=== PATIENT | female | born 1985 | race African-American/Black ===

== ENCOUNTER 2016-07-17 09:07 | Emergency (ER) | payer MEDICAID ==
[~2016-07-17] VITALS: Ht 175.3 cm; Wt 73.0 kg
[~2016-07-17 09:07] MED LIST: HYDR200T3 PO; PREN0.01 PO; ULTR50TA PO
[2016-07-17 09:11] VITALS: BP 147/74; PULSE 89; RESP 17; TEMP 98.2; O2SAT 99
--- NOTE | 2016-07-17 09:43 | PD ---
HPI Chief Complaint: Back/ Neck Pain or Injury Time Seen by Provider: 09:43 Travel History International Travel<30 days: No Contact w/Intl Traveler<30days: No Traveled to known affect area: No History of Present Illness HPI 31-year-old Afro-[place] female presents the emergency Department with sudden onset middle to upper thoracic tenderness in the left arm, secondary lifting HER 2-year-old child while getting her ready for daycare this morning. Patient states the pain starts in her upper back and radiates into her left arm and around her left chest. She denies weakness of the left arm, or numbness. Pain is worse with twisting motion of the thorax. Also is worse with cough. She is not short of breath however, nauseous, and denies vomiting. Her pain is currently 8 out of 10. She is allergic to Lortab. PFSH Past Medical History Arthritis: Yes (RA) Autoimmune Disease: Yes (SYSTEMATIC LUPUS) Blood Disorders: No Depression: Yes Cancer: No Cardiovascular Problems: No Diminished Hearing: No Endocrine: No Gastrointestinal Disorders: Yes (GASTRITIS. ) Genitourinary: Yes (NEPHROTIC SYNDROME 2004) Hypertension: Yes (PREVIOUSLY DX D/T NEPHROTIC SYNDROME) Musculoskeletal: No Neurologic: No Psychiatric: No Respiratory: No Integumentary: Yes (SINCE JUNE, BUTTERFLY RASH TO FACE) ?: Unknown : 6 Para: 3 Miscarriage: 3 : 0 Ectopic : No Dilation and Curettage (D&C): Yes (2003) Past Surgical History Genitourinary Surgery: Yes (LEFT KIDNEY BIOPSY) Gynecologic Surgery: Yes (D&C) Other Surgery: No Social History Alcohol Use: No Tobacco Use: Yes (FEW/DAY) Substance Use: Yes (MARIJUANA) Allergies-Medications (Allergen,Severity, Reaction): Coded Allergies: Lortab (Verified Adverse Reaction, Intermediate, Nausea/Vomiting, 09/12/14) Reported Meds & Prescriptions Reported Meds & Active Scripts Active Vit ( Plus) (Prenat Multivit/Senior Care Specialist/Iron/Folic Ac) Tab 1 Tab PO DAILY Reported Ultram (Tramadol HCl) 50 Mg Tab 50 Mg PO Q4H PRN Hydroxychloroquine Sulfat (Hydroxychloroquine Sulfate) 200 Mg Tab 200 Mg PO Q12 Review of Systems Except as stated in HPI: all other systems reviewed are Neg General / Constitutional: No: Fever Eyes: No: Visual changes HENT: No: Headaches Cardiovascular: No: Chest Pain or Discomfort Respiratory: No: Shortness of Breath Gastrointestinal: No: Abdominal Pain Genitourinary: No: Dysuria Musculoskeletal: Positive: Myalgias, Limited ROM, Pain Skin: No Rash Neurologic: No: Weakness Psychiatric: No: Depression Endocrine: No: Polydipsia Hematologic/Lymphatic: No: Easy Bruising Physical Exam Narrative GENERAL: Patient appears in mild to moderate distress. SKIN: Warm and dry. Normal color. Normal turgor. No rash. HEAD: Atraumatic. Normocephalic. EYES: Pupils equal and round. No scleral icterus. No injection or drainage. ENT: No nasal bleeding or discharge. Mucous membranes pink and moist. NECK: Trachea midline. No bony tenderness or step-off. Range of motion of the cervical spine is full and without tenderness. CARDIOVASCULAR: Regular rate and rhythm. RESPIRATORY: No accessory muscle use. Clear to auscultation. Breath sounds equal bilaterally. Patient has no bony tenderness to the thoracic spine, however she has soft tissue tenderness and spasm along the mid to upper thoracic paraspinous region consistent with a muscle strain/sprain. GASTROINTESTINAL: Abdomen soft, non-tender, nondistended. Hepatic and splenic margins not palpable. No CVA tenderness. MUSCULOSKELETAL: Extremities without clubbing, cyanosis, or edema. No obvious deformities. NEUROLOGICAL: Awake and alert. No obvious cranial nerve deficits. Motor grossly within normal limits. Five out of 5 muscle strength in the arms and legs. Normal speech. PSYCHIATRIC: Appropriate mood and affect; insight and judgment normal. Data Data Last Documented VS Vital Signs Date Time Temp Pulse Resp B/P Pulse Ox O2 Delivery O2 Flow Rate FiO2 07/17/16 09:11 98.2 89 17 147/74 99 Orders Orphenadrine Inj (Norflex Inj) (07/17/16 10:00) MDM Medical Decision Making Medical Screen Exam Complete: Yes Emergency Medical Condition: Yes Differential Diagnosis Thoracic strain. Muscle spasm. Brachial plexus injury. Narrative Course Patient is medically stable at time of exam. Radiographic imaging is not felt warranted based on the patient's history and physical. Patient is given an injection of Norflex 60 mg IM. Patient will be continued on Norflex 100 mg twice a day #10. Patient also given ibuprofen 800 mg 3 times daily with food. Patient can also take extra strength Tylenol 2 tabs every 6 hours when necessary pain #60. Patient is to use heat and ice and gentle stretching as discussed. Patient should follow up if symptoms do not improve or worsen as discussed. Diagnosis Primary Impression: Acute thoracic myofascial strain Qualified Code: S29.019A - Acute thoracic myofascial strain, initial encounter Referrals: Primary Care Physician Patient Instructions: General Instructions, Thoracic Back Strain (ED), Upper Back Exercises (GEN) Additional Instructions: Radiographic imaging is not felt warranted based on the patient's history and physical. Patient is given an injection of Norflex 60 mg IM. Patient will be continued on Norflex 100 mg twice a day #10. Patient also given ibuprofen 800 mg 3 times daily with food. Patient can also take extra strength Tylenol 2 tabs every 6 hours when necessary pain #60. Patient is to use heat and ice and gentle stretching as discussed. Patient should follow up if symptoms do not improve or worsen as discussed. Med/Other Pt SpecificInfo: Prescription(s) given Disposition: 01 DISCHARGE HOME Condition: Stable Arsenio Cabrera Jul 17, 2016 09:43
[2016-07-17] MEDS ORDERED: ORPHENADRINE INJ 60 MG/2 ML AMP IM SCH (10:00)
[2016-07-17] MEDS ORDERED: IBUP800T23 PO (10:14)
[2016-07-17] MEDS ORDERED: MAPA500T13 PO (10:14)
[2016-07-17] MEDS ORDERED: ORPH100T99 PO (10:14)
[2016-07-17] MEDS ORDERED: VITA100064 PO (10:39)
[2016-07-17] MEDS ORDERED: TRAM50TA PO (10:39)
[2016-07-17] MEDS ORDERED: HYDR200T3 PO (10:39)
[2016-07-17] MEDS ORDERED: LISI-515 PO (10:39)
== END 2016-07-17 10:53 | disposition home or self-care (01) ==
LOC: NEPK 09:07
DX: S29.012A Strain of muscle and tendon of back wall of thorax, initial encounter (principal); M79.602 Pain in left arm; I10 Essential (primary) hypertension; X50.0XXA Overexertion from strenuous movement or load, initial encounter; Y93.F2 Activity, caregiving, lifting; Y92.009 Unspecified place in unspecified non-institutional (private) residence as the place of occurrence of the external cause; Z72.0 Tobacco use
CPT/HCPCS: 96372; 99284; J2360

== ENCOUNTER 2016-10-15 16:13 | Emergency (ER) | payer MEDICAID ==
[~2016-10-15] VITALS: Ht 175.3 cm; Wt 70.0 kg
[~2016-10-15 16:13] MED LIST changes: +IBUP800T23 PO; +LISI-515 PO; +MAPA500T13 PO; +ORPH100T99 PO; -PREN0.01 PO; +TRAM50TA PO; -ULTR50TA PO; +VITA100064 PO
[2016-10-15 16:15] VITALS: BP 117/68; PULSE 84; RESP 12; TEMP 98.8; O2SAT 97
--- NOTE | 2016-10-15 16:21 | PD ---
Physical Exam Date Seen by Provider: Oct 15, 2016 Time Seen by Provider: 16:19 Narrative 31 yo female here for left leg pain. Supposed to have surgery for it. Wont have it for some time. Feeling numbness. Stepped into a crack on the driveway. No other medical issues. No fall today. Vitals are stable in triage. Awaiting bed placement. Data Data Last Documented VS Vital Signs Date Time Temp Pulse Resp B/P (MAP) Pulse Ox O2 Delivery O2 Flow Rate FiO2 10/15/16 16:15 98.8 84 12 117/68 (84) 97 MDM Medical Record Reviewed: Yes Supervised Visit with MARIKA: No Silvano Barahona Oct 15, 2016 16:21
--- NOTE | 2016-10-15 17:00 | RADRPT ---
EXAM DATE/TIME: 10/15/2016 16:47 [facility] COMPARISON: No previous studies available for comparison. INDICATIONS : Hip pain; arthritis. MEDICAL HISTORY : Lupus. Arthritis. SURGICAL HISTORY : None. ENCOUNTER: Initial ACUITY: >1 year PAIN SCORE: 9/10 LOCATION: Left Hip. FINDINGS: There is severe arthritic change in the left hip with appearance consistent with avascular necrosis a nd subchondral collapse of the femoral head. There is severe concentric joint space narrowing, sclero sis and osteophyte formation with subchondral cyst formation. Contralateral right hip is unremarkable . The bony pelvis is otherwise intact. 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 This report was verified electronically.
[2016-10-15] MEDS ORDERED: KETOROLAC TROMETHAMINE 60 MG/2 ML (IM) VIAL IM ONE (20:00)
--- NOTE | 2016-10-15 20:04 | PD ---
HPI Chief Complaint: Pain: Acute or Chronic Time Seen by Provider: 20:00 Travel History International Travel<30 days: No Contact w/Intl Traveler<30days: No Traveled to known affect area: No History of Present Illness HPI 31-year-old female with history of AVN of the Left hip, awaiting hip replacement but has been struggling with smoking cessation, presents to the ED for evaluation of Left hip pain. Pt states she mis-stepped and twisted her hip. She did not fall to the ground. She experienced immediate hip pain and groin pain. Pain is 8/10. She is able to ambulate, but this exacerbates pain. No other symptoms to report. PFSH Past Medical History Arthritis: Yes (RA) Autoimmune Disease: Yes (SYSTEMATIC LUPUS) Blood Disorders: No Depression: Yes Cancer: No Cardiovascular Problems: No Diminished Hearing: No Endocrine: No Gastrointestinal Disorders: Yes (GASTRITIS. ) Genitourinary: Yes (NEPHROTIC SYNDROME 2004) Hypertension: Yes (PREVIOUSLY DX D/T NEPHROTIC SYNDROME) Musculoskeletal: No Neurologic: No Psychiatric: No Respiratory: No Integumentary: Yes (SINCE JUNE, BUTTERFLY RASH TO FACE) Immunizations Current: Yes Tetanus Vaccination: < 5 Years ?: Not LMP: 09/25/16 : 6 Para: 3 Miscarriage: 3 : 0 Ectopic : No Dilation and Curettage (D&C): Yes (2003) Past Surgical History Genitourinary Surgery: Yes (LEFT KIDNEY BIOPSY) Gynecologic Surgery: Yes (D&C) Other Surgery: No Social History Alcohol Use: No Tobacco Use: Yes (FEW/DAY) Substance Use: Yes (MARIJUANA) Allergies-Medications (Allergen,Severity, Reaction): Coded Allergies: No Known Allergies (Unverified , 10/15/16) Reported Meds & Prescriptions Reported Meds & Active Scripts Active Ultram (Tramadol HCl) 50 Mg Tab 50 Mg PO Q6H PRN 15 Days Mobic (Meloxicam) 15 Mg Tab 15 Mg PO DAILY PRN 14 Days Orphenadrine CR (Orphenadrine Citrate) 100 Mg Tab 100 Mg PO Q12HR Mapap Extra Strength (Acetaminophen) 500 Mg Tab 1,000 Mg PO Q6HR PRN Ibuprofen 800 Mg Tab 800 Mg PO Q8H PRN Reported Hydroxychloroquine (Hydroxychloroquine Sulfate) 200 Mg Tab 200 Mg PO DAILY Takw with food Vitamin D3 (Cholecalciferol) 1,000 Unit Tab 1,000 Units PO DAILY Tramadol (Tramadol HCl) 50 Mg Tab 50 Mg PO Q4H PRN Lisinopril 20 Mg Tab 20 Mg PO DAILY Review of Systems Except as stated in HPI: all other systems reviewed are Neg Physical Exam Narrative GENERAL: Well nourished female patient lying in the stretcher in no acute distress SKIN: Warm and dry. HEAD: Atraumatic. Normocephalic. EYES: Pupils equal and round. No scleral icterus. No injection or drainage. ENT: No nasal bleeding or discharge. Mucous membranes pink and moist. NECK: Trachea midline. No JVD. CARDIOVASCULAR: Regular rate and rhythm. RESPIRATORY: No accessory muscle use. Clear to auscultation. Breath sounds equal bilaterally. GASTROINTESTINAL: Abdomen soft, non-tender, nondistended. Hepatic and splenic margins not palpable. MUSCULOSKELETAL: Extremities without clubbing, cyanosis, or edema. No obvious deformities. Pt has full flexion and extension of the affected hip; no deformity, shortening, or rotation. Distal pulses are palpable.Pain in the groin with abduction of the left hip NEUROLOGICAL: Awake and alert. No obvious cranial nerve deficits. Motor grossly within normal limits. Five out of 5 muscle strength in the arms and legs. Normal speech. PSYCHIATRIC: Appropriate mood and affect; insight and judgment normal. Data Data Last Documented VS Vital Signs Date Time Temp Pulse Resp B/P (MAP) Pulse Ox O2 Delivery O2 Flow Rate FiO2 10/15/16 20:28 10/15/16 16:15 98.8 84 12 97 Orders Orders Hip, Uni(Ap&Lat) W Ap Pelvis (10/15/16 ) Ketorolac Inj (Toradol Inj) (10/15/16 20:00) [facility] Medical Decision Making Medical Screen Exam Complete: Yes Emergency Medical Condition: Yes Medical Record Reviewed: Yes Differential Diagnosis hip sprain vs fracture vs dislocation Narrative Course 31 year old female presents to the ED for evaluation of L hip injury. Pt has full range of motion without deformity. Xray shows no acute abnormality, but findings consistent with AVN and advanced arthritis. Pt is treated for pain and will be discharged with additional pain control. She is encouraged to follow up with her pcp and offender job retention specialist. She agrees to return immediately with any acute worsening of symptoms Diagnosis Primary Impression: Left hip pain Additional Impressions: Strain of left inguinal muscle Qualified Codes: S39.013A - Strain of muscle, fascia and tendon of pelvis, initial encounter History of avascular necrosis of capital femoral epiphysis Referrals: Orthopaedic Surgeon Primary Care Physician Patient Instructions: General Instructions, Hip Sprain (ED) Departure Forms: Tests/Procedures, Work Release Enter return to work date: Oct 17, 2016 Additional Instructions: Ice and/or warm moist heat may help to alleviate symptoms Follow-up with a primary care provider Return immediately to the emergency department with any acute worsening of symptoms Med/Other Pt SpecificInfo: Prescription(s) given Scripts Tramadol (Ultram) 50 Mg Tab 50 MG PO Q6H Y for PAIN GREATER THAN 5 for 15 Days, TAB 0 Refills Prov: Izzy Tubbs 10/15/16 Meloxicam (Mobic) 15 Mg Tab 15 MG PO DAILY Y for PAIN SCALE 1 TO 10 for 14 Days, TAB 0 Refills Prov: Izzy Tubbs 10/15/16 Disposition: 01 DISCHARGE HOME Condition: Stable Izzy Tubbs Oct 15, 2016 20:04
[2016-10-15] MEDS ORDERED: ULTR50TA5 PO (20:24)
[2016-10-15] MEDS ORDERED: MOBI15TA PO (20:24)
== END 2016-10-15 20:35 | disposition home or self-care (01) ==
LOC: NEPD 16:13
DX: M25.552 Pain in left hip (principal); S39.013A Strain of muscle, fascia and tendon of pelvis, initial encounter; M06.9 Rheumatoid arthritis, unspecified; M32.9 Systemic lupus erythematosus, unspecified; F32.9 Major depressive disorder, single episode, unspecified; X50.1XXA Overexertion from prolonged static or awkward postures, initial encounter; Z72.0 Tobacco use; Z79.899 Other long term (current) drug therapy
CPT/HCPCS: 73502; 96372; 99284; J1885

== ENCOUNTER 2016-11-05 10:43 | Emergency (ER) | payer MEDICAID ==
[~2016-11-05] VITALS: Ht 175.3 cm; Wt 68.3 kg
[~2016-11-05 10:43] MED LIST changes: +MOBI15TA PO; +ULTR50TA5 PO
[2016-11-05 10:45] VITALS: BP 129/67; PULSE 66; RESP 20; TEMP 98.8; O2SAT 99
[2016-11-05] MEDS ORDERED: AMOX500C PO (11:11)
[2016-11-05] MEDS ORDERED: IPRA0.06 EACH NARE (11:11)
[2016-11-05] MEDS ORDERED: MOME17I EACH NARE (11:11)
--- NOTE | 2016-11-05 11:12 | PD ---
HPI Chief Complaint: Cold / Flu Symptoms Time Seen by Provider: 11:09 Travel History International Travel<30 days: No Contact w/Intl Traveler<30days: No Traveled to known affect area: No History of Present Illness HPI 31-year-old male presents emergency Department with complaint of sinus pressure , nasal congestion, cough, throat irritation times one week. Denies fever, vomiting. Denies ear pain. Denies chest tightness, shortness of breath, wheezing. Has been using [id number] medications, such as Robitussin, for symptom management. No known aggravating or relieving factors. Symptoms are mild in severity. No one else with similar symptoms. No known allergies. No other modifying factors or associated signs and symptoms. PFSH Past Medical History Arthritis: Yes (RA) Autoimmune Disease: Yes (SYSTEMATIC LUPUS) Blood Disorders: No Depression: Yes Cancer: No Cardiovascular Problems: No Diminished Hearing: No Endocrine: No Gastrointestinal Disorders: Yes (GASTRITIS. ) Genitourinary: Yes (NEPHROTIC SYNDROME 2004) Hypertension: Yes (PREVIOUSLY DX D/T NEPHROTIC SYNDROME) Musculoskeletal: No Neurologic: No Psychiatric: No Reproductive: No (PT DOESN'T REMEMBER DATE OF LMP) Respiratory: No Integumentary: Yes (SINCE JUNE, BUTTERFLY RASH TO FACE) Immunizations Current: Yes ?: Not LMP: SEP 16 2016 - DENIES : 6 Para: 3 Miscarriage: 3 : 0 Ectopic : No Dilation and Curettage (D&C): Yes (2003) Past Surgical History Genitourinary Surgery: Yes (LEFT KIDNEY BIOPSY) Gynecologic Surgery: Yes (D&C) Other Surgery: No Social History Alcohol Use: No Tobacco Use: Yes (FEW/DAY) Substance Use: Yes (MARIJUANA) Allergies-Medications (Allergen,Severity, Reaction): Coded Allergies: No Known Allergies (Unverified , 10/15/16) Reported Meds & Prescriptions Reported Meds & Active Scripts Active Nasonex Nasal Marathon (Mometasone Furoate) 50 Mcg/Act Naspr 2 Marathon EACH NARE DAILY PRN Amoxicillin 500 Mg Cap 500 Mg PO BID 10 Days Ipratropium Nasal 0.06% Marathon 1 Marathon EACH NARE TID PRN Ultram (Tramadol HCl) 50 Mg Tab 50 Mg PO Q6H PRN 15 Days Mobic (Meloxicam) 15 Mg Tab 15 Mg PO DAILY PRN 14 Days Orphenadrine CR (Orphenadrine Citrate) 100 Mg Tab 100 Mg PO Q12HR Mapap Extra Strength (Acetaminophen) 500 Mg Tab 1,000 Mg PO Q6HR PRN Ibuprofen 800 Mg Tab 800 Mg PO Q8H PRN Reported Hydroxychloroquine (Hydroxychloroquine Sulfate) 200 Mg Tab 200 Mg PO DAILY Takw with food Vitamin D3 (Cholecalciferol) 1,000 Unit Tab 1,000 Units PO DAILY Tramadol (Tramadol HCl) 50 Mg Tab 50 Mg PO Q4H PRN Lisinopril 20 Mg Tab 20 Mg PO DAILY Review of Systems Except as stated in HPI: all other systems reviewed are Neg Physical Exam Narrative GENERAL: Well-nourished, well-developed black female patient, in no acute distress SKIN: Warm and dry. No rash. HEAD: Atraumatic. Normocephalic. Frontal and maxillary sinus tenderness on palpation. EYES: Pupils equal and round at 3 mm with brisk reaction. No scleral icterus. No injection or drainage. PERRLA. ENT: Mucosa pink and moist. Oropharynx without erythema, exudates, tonsillar edema.. No uvular edema. No uvular, palatal, or tonsillar deviation. Airway patent. EARS: Bilateral pinnae and external canals appear within normal limits. Bilateral tympanic membranes without erythema, dullness or perforation. NECK: Trachea midline. No lymphadenopathy. CARDIOVASCULAR: Regular rate and rhythm. No murmur appreciated. RESPIRATORY: No accessory muscle use. Clear to auscultation. Breath sounds equal bilaterally. GASTROINTESTINAL: Flat. MUSCULOSKELETAL: No obvious deformities. No clubbing. No cyanosis. No edema. NEUROLOGICAL: Awake and alert. Oriented 3. No obvious cranial nerve deficits. Motor grossly within normal limits. Normal speech. Moves all extremities. 5/5 strength to all extremities. PSYCHIATRIC: Appropriate mood and affect; insight and judgment normal. Data Data Last Documented VS Vital Signs Date Time Temp Pulse Resp B/P (MAP) Pulse Ox O2 Delivery O2 Flow Rate FiO2 11/05/16 10:45 98.8 66 20 129/67 (87) 99 Room Air MDM Medical Decision Making Medical Screen Exam Complete: Yes Emergency Medical Condition: Yes Medical Record Reviewed: Yes Differential Diagnosis Sinusitis, upper respiratory infection, viral illness Narrative Course 31-year-old female physical exam consistent with sinusitis. Patient is afebrile and nontoxic-appearing. Denies fever, vomiting. I will prescribe antibiotics also due to length of illness. Amoxicillin, Nasonex nasal spray, ipratropium nasal spray prescribed for home. Instructed patient to follow up with primary care provider. Patient verbalizes understanding and agreement with treatment plan. Patient is medically cleared and stable for discharge. Discussed reasons to return to the emergency department. Patient agrees with treatment plan. The patients vital signs are stable and the patient is stable for outpatient follow-up and treatment. Patient discharged home, stable and in no acute distress. Diagnosis Primary Impression: Sinusitis Qualified Codes: J32.9 - Chronic sinusitis, unspecified Referrals: Primary Care Physician Patient Instructions: General Instructions, Sinusitis (ED) Departure Forms: Tests/Procedures, Work Release Enter return to work date: Nov 07, 2016 Additional Instructions: Antibiotics as prescribed and complete full course Ibuprofen or Tylenol as instructed and as needed for fever/pain Dymr-ejz-kqiqdla cough and cold medications as directed and as needed for symptom management Get plenty of sleep/rest Drink plenty of fluids to prevent dehydration; popsicles and Gatorade Use an air humidifier/turn off ceiling fans Follow-up with primary care provider Return immediately to the emergency department with worsening of symptoms Med/Other Pt SpecificInfo: Prescription(s) given Scripts Mometasone Nasal Marathon (Nasonex Nasal Marathon) 50 Mcg/Act Naspr 2 SPRAY EACH NARE DAILY Y for NASAL CONGESTION, #1 BOTTLE 0 Refills Prov: Kaelyn Purvis 11/05/16 Amoxicillin (Amoxicillin) 500 Mg Cap 500 MG PO BID for Infection for 10 Days, #20 CAP 0 Refills Prov: Kaelyn Purvis 11/05/16 Ipratropium Nasal (Ipratropium Nasal) 0.06% Marathon 1 SPRAY EACH NARE TID Y for NASAL CONGESTION, #1 BOTTLE 0 Refills Prov: Kaelyn Purvis 11/05/16 Disposition: 01 DISCHARGE HOME Condition: Stable Kaelyn Purvis Nov 05, 2016 11:12
== END 2016-11-05 12:14 | disposition home or self-care (01) ==
LOC: NEPD 10:43
DX: J32.9 Chronic sinusitis, unspecified (principal); Z72.0 Tobacco use
CPT/HCPCS: 99284

== ENCOUNTER 2017-01-30 09:14 | Emergency (ER) | payer MEDICAID ==
[~2017-01-30 09:14] MED LIST changes: +AMOX500C PO; +IBUP1TAB7 PO; -IBUP800T23 PO; +IPRA0.06 EACH NARE; +MOME17I EACH NARE; +ORPH100T2 PO; -ORPH100T99 PO; +TRAM50 PO; -ULTR50TA5 PO
[2017-01-30 09:18] VITALS: BP 137/65; PULSE 130; RESP 18; TEMP 99.8; O2SAT 99
[2017-01-30] MEDS ORDERED: KETOROLAC TROMETHAMINE 30 MG/ML (IVP) VIAL IV PUSH ONE (09:30)
[2017-01-30] MEDS ORDERED: ONDANSETRON HCL 4 MG/2 ML VIAL IV PUSH ONE (09:30)
[2017-01-30] MEDS ORDERED: SODIUM CHLOR 0.9% 1000 ML INJ 1,000 ML IV ONE (09:30)
--- NOTE | 2017-01-30 09:32 | PD ---
HPI Chief Complaint: Cold / Flu Symptoms Time Seen by Provider: 09:20 Travel History International Travel<30 days: No Contact w/Intl Traveler<30days: No Traveled to known affect area: No History of Present Illness HPI The patient is a 31-year-old [place] female who presents to the emergency department for 1 day of cough and cold symptoms. The patient states she left work yesterday for cough and cold symptoms that include congestion with purulent nasal drainage, dry nonproductive cough, headache, bilateral ear pain, fevers with intermittent chills and sweats, and mild nausea. The patient denies any vomiting, diarrhea, abdominal pain, or dysuria. She does complain of generalized myalgias and arthralgias. The patient does have a history of lupus and is currently treated with Plaquenil. The patient states she did receive her influenza vaccination this year. Symptoms are moderate, possibly exacerbated by underlying infection, and there are no current alleviating factors. PFSH Past Medical History Arthritis: Yes (RA) Autoimmune Disease: Yes (SYSTEMATIC LUPUS) Blood Disorders: No Depression: Yes Cancer: No Cardiovascular Problems: No Diminished Hearing: No Endocrine: No Gastrointestinal Disorders: Yes Genitourinary: Yes Hypertension: Yes (PREVIOUSLY DX D/T NEPHROTIC SYNDROME) Musculoskeletal: No Neurologic: No Psychiatric: No Reproductive: No (PT DOESN'T REMEMBER DATE OF LMP) Respiratory: No Integumentary: Yes Immunizations Current: Yes ?: Not : 6 Para: 3 Miscarriage: 3 : 0 Ectopic : No Dilation and Curettage (D&C): Yes (2003) Tubal Ligation: Yes Past Surgical History Genitourinary Surgery: Yes (LEFT KIDNEY BIOPSY) Gynecologic Surgery: Yes (D&C) Other Surgery: No Social History Alcohol Use: No Tobacco Use: Yes Substance Use: Yes Allergies-Medications (Allergen,Severity, Reaction): Coded Allergies: No Known Allergies (Unverified Adverse Reaction, Unknown, 01/30/17) Reported Meds & Prescriptions Reported Meds & Active Scripts Active Ultram (Tramadol HCl) 50 Mg Tab 50 Mg PO Q6H PRN 15 Days Reported Hydroxychloroquine (Hydroxychloroquine Sulfate) 200 Mg Tab 200 Mg PO DAILY Takw with food Vitamin D3 (Cholecalciferol) 1,000 Unit Tab 1,000 Units PO DAILY Tramadol (Tramadol HCl) 50 Mg Tab 50 Mg PO Q4H PRN Lisinopril 20 Mg Tab 20 Mg PO DAILY Review of Systems Except as stated in HPI: all other systems reviewed are Neg General / Constitutional: Positive: Fever, Chills HENT: Positive: Headaches, Sore Throat, Congestion, Earache Cardiovascular: No: Chest Pain or Discomfort Respiratory: Positive: Cough, No: Shortness of Breath Gastrointestinal: Positive: Nausea, No: Vomiting, Diarrhea, Abdominal Pain Genitourinary: No: Dysuria Musculoskeletal: Positive: Myalgias, Arthralgias Skin: No Rash Physical Exam Narrative GENERAL: Awake, alert, pleasant 31 year-old female who appears her stated age and is in no acute respiratory distress. SKIN: Focused skin assessment warm/dry. HEAD: Atraumatic. Normocephalic. EYES: Pupils equal and round. No scleral icterus. No injection or drainage. ENT: No nasal bleeding or discharge. Oropharynx reveals erythema without exudate. TMs are dull without erythema or bulging. NECK: Trachea midline. No JVD. Shotty bilateral anterior cervical lymphadenopathy which is mobile and tender. CARDIOVASCULAR: Regular, tachycardic with a heart rate of 110, no audible murmur. RESPIRATORY: No accessory muscle use. Clear to auscultation. Breath sounds equal bilaterally. GASTROINTESTINAL: Abdomen soft, non-tender, nondistended. No rebound tenderness. MUSCULOSKELETAL: No obvious deformities. No clubbing. No cyanosis. No edema. Back: No CVA tenderness. NEUROLOGICAL: Awake and alert. No obvious cranial nerve deficits. Motor grossly within normal limits. Normal speech. PSYCHIATRIC: Appropriate mood and affect; insight and judgment normal. Data Data Last Documented VS Vital Signs Date Time Temp Pulse Resp B/P (MAP) Pulse Ox O2 Delivery O2 Flow Rate FiO2 01/30/17 09:34 99 16 120/62 (81) 97 Room Air 01/30/17 09:18 99.8 Orders Orders Group A Rapid Strep Screen (01/30/17 09:28) Influenzae A/B Antigen (01/30/17 09:28) Sodium Chlor 0.9% 1000 Ml Inj (Ns 1000 M (01/30/17 09:30) Ondansetron Inj (Zofran Inj) (01/30/17 09:30) Ketorolac Inj (Toradol Inj) (01/30/17 09:30) Urinalysis - C+S If Indicated (01/30/17 09:28) Chest, Single Ap (01/30/17 ) Penicillin G Benzathine Inj (Bicillin L- (01/30/17 10:45) Ed Discharge Order (01/30/17 10:41) Labs Laboratory Tests Test 01/30/17 09:45 Urine Color YELLOW Urine Turbidity HAZY Urine pH 7.0 Urine Specific [place] 1.015 Urine Protein 100 mg/dL Urine Glucose (UA) NEG mg/dL Urine Ketones TRACE mg/dL Urine Occult Blood NEG Urine Nitrite NEG Urine Bilirubin NEG Urine Urobilinogen LESS THAN 2.0 MG/DL Urine Leukocyte Esterase MOD Urine RBC 1 /hpf Urine WBC 1 /hpf Urine Squamous Epithelial Cells 16 /hpf Urine Mucus FEW /lpf Microscopic Urinalysis Comment CULT NOT INDICATED MDM Medical Decision Making Medical Screen Exam Complete: Yes Emergency Medical Condition: Yes Medical Record Reviewed: Yes Interpretation(s) Date/Time Source Procedure Growth Status 01/30/17 09:45 Throat Group A Streptococcus Screen (YIN) - Final Pos For Grp A Strep Antigen Complete 01/30/17 09:45 Nasal Aspirate Influenza Types A,B Antigen (YIN) - Final NEGATIVE FOR FLU A AND B ANTIGEN.... Complete Laboratory Tests Test 01/30/17 09:45 Urine Color YELLOW Urine Turbidity HAZY Urine pH 7.0 Urine Specific [place] 1.015 Urine Protein 100 mg/dL Urine Glucose (UA) NEG mg/dL Urine Ketones TRACE mg/dL Urine Occult Blood NEG Urine Nitrite NEG Urine Bilirubin NEG Urine Urobilinogen LESS THAN 2.0 MG/DL Urine Leukocyte Esterase MOD Urine RBC 1 /hpf Urine WBC 1 /hpf Urine Squamous Epithelial Cells 16 /hpf Urine Mucus FEW /lpf Microscopic Urinalysis Comment CULT NOT INDICATED Differential Diagnosis Differential diagnosis includes influenza, viral syndrome, strep pharyngitis, viral pharyngitis, bronchitis, pneumonia, pyelonephritis. Narrative Course IV was established and the patient was placed on cardiac telemetry monitoring and continuous pulse oximetry monitoring. Strep screen was sent to lab. Influenza screen was sent to lab. UA was sent to lab. Chest x-ray was obtained. Patient was administered 1 L of IV fluids, Zofran 4 mg intravenously , and Toradol 30 mg intravenously. Influenza screen was negative. Chest x-ray was negative. Strep screen was positive. I had a discussion with the patient regarding Bicillin LA injection versus pen VK 4 times a day for 10 days. The patient shows Bicillin LA. Therefore, the patient received Bicillin LA 1.2 million units IM. The patient was then monitored in the emergency department. She will be discharged home with a copy of her results and advised to follow-up with her primary physician. Symptomatic care at home with Tylenol and/or Motrin , fluids to stay hydrated, and follow-up with her primary physician. Diagnosis Primary Impression: Strep pharyngitis Patient Instructions: General Instructions Additional Instructions: Please provide the patient a copy of her chest x-ray results, flu results, strep results, and UA results at discharge. Alternate Tylenol and Motrin for pain and fever. Follow-up with your primary physician. Return if symptoms worsen or progress. Med/Other Pt SpecificInfo: No Change to Meds Disposition: 01 DISCHARGE HOME Condition: Stable Liang Younger MD Jan 30, 2017 09:32
[2017-01-30 09:34] VITALS: BP 120/62; PULSE 99; RESP 16; O2SAT 97
--- NOTE | 2017-01-30 10:09 | RADRPT ---
EXAM DATE/TIME: 01/30/2017 09:46 [facility] COMPARISON: No previous studies available for comparison. INDICATIONS : Fever, cough, congestion, chest pain. MEDICAL HISTORY : Smoker. SURGICAL HISTORY : None. ENCOUNTER: Subsequent ACUITY: 2 days PAIN SCORE: 3/10 LOCATION: Bilateral upper chest FINDINGS: A single view of the chest demonstrates the lungs to be symmetrically aerated without evidence of mas s, infiltrate or effusion. The cardiomediastinal contours are unremarkable. Osseous structures are intact. CONCLUSION: Normal examination for a patient of this age. Tristian Villalobos MD on January 30, 2017 at 10:06 Board Certified Radiologist. This report was verified electronically.
[2017-01-30 10:10] LABS: BILIRUBIN, URINE NEG (NEG); BLOOD, URINE NEG (NEG); GLUCOSE,URINE NEG (NEG); KETONE, URINE TRACE mg/dL (NEG); MUCUS URINE FEW /lpf (OCC); NITRITE,URINE NEG (NEG); SQUAMOUS EPITHELIAL CELL URINE 16 /hpf (0-5); URINE COLOR YELLOW (YELLW/STRAW); URINE LEUKOCYTE ESTERASE MOD (NEG)
[2017-01-30] MEDS ORDERED: PENICILLIN G BENZATHINE 1,200,000 UNITS/2 ML SYRINGE IM ONE (10:45)
== END 2017-01-30 12:00 | disposition home or self-care (01) ==
LOC: NEPD 09:14
DX: J02.0 Streptococcal pharyngitis (principal); R51 Headache; R05 Cough; R11.0 Nausea; M32.9 Systemic lupus erythematosus, unspecified; M06.9 Rheumatoid arthritis, unspecified; I10 Essential (primary) hypertension; F32.9 Major depressive disorder, single episode, unspecified; Z72.0 Tobacco use
CPT/HCPCS: 71010; 81001; 87804; 87880; J0561; J1885; J2405; J7030; 96361; 96372; 96374; 96375